=== PATIENT | male | born 1955 | race Two or more races ===

== ENCOUNTER 2022-05-30 07:42 | Emergency (ER) | payer OTHER ==
[~2022-05-30] VITALS: Ht 172.7 cm; Wt 86.2 kg
[2022-05-30] MEDS ORDERED: TOPROL XL25 M1 (07:55)
[2022-05-30] MEDS ORDERED: COZAAR25 MG (07:55)
== END 2022-05-30 09:41 | disposition home or self-care (01) ==
LOC: ER 07:42
DX: T15.02XA Foreign body in cornea, left eye, initial encounter (principal); X58.XXXA Exposure to other specified factors, initial encounter; Y93.9 Activity, unspecified; Y92.9 Unspecified place or not applicable; Z88.0 Allergy status to penicillin